=== PATIENT | male | born 1990 | race Caucasian/White ===

== ENCOUNTER → 2017-06-11 | Outpatient (CLI) | payer OTHER | END | disposition home or self-care (01) | LOC: KCIC MRI 14:32 | DX: M25.562 Pain in left knee (principal); M66.0 Rupture of popliteal cyst | CPT/HCPCS: 73721 ==

== ENCOUNTER 2017-06-18 06:11 | Day surgery (SDC) | payer OTHER ==
[2017-06-18] MEDS: IV RINGERS,LACTATED 1000ML 1,000 ML IV ×2 (06:47)
[2017-06-18] MEDS ORDERED: MORPHINE SULFATE 2 MG/ML DISP.SYRIN. IV ×2 (07:00)
[2017-06-18] MEDS ORDERED: ONDANSETRON PF 4 MG/2 ML VIAL. IV ×2 (07:00)
[2017-06-18] MEDS ORDERED: fentaNYL PF VIAL 100 MCG/2 ML VIAL IV ×2 (07:00)
[2017-06-18] MEDS ORDERED: ceFAZolin 2GM PREMIX 2 GM/50 ML BAG IV ×2 (07:00)
[2017-06-18] MEDS ORDERED: PROCHLORPERAZINE 10 MG/2 ML VIAL. IV ×2 (07:00)
[2017-06-18] MEDS ORDERED: LIDOCAINE 1% PF 2 ML VIAL. ID ×2 (07:00)
[2017-06-18] MEDS ORDERED: ONDANSETRON PF 4 MG/2 ML VIAL. ×2 (07:10)
[2017-06-18] MEDS ORDERED: PROPOFOL 20 ML IV ×2 (07:10)
[2017-06-18] MEDS ORDERED: LIDOCAINE 2% PF Vial for OR 5 ML VIAL. ×2 (07:10)
[2017-06-18] MEDS ORDERED: DEXAMETHASONE SOD PHOS 20 MG/5 ML VIAL. ×2 (07:10)
[2017-06-18] MEDS ORDERED: MIDAZOLAM HCL/PF 2 MG/2 ML VIAL. ×2 (07:11)
[2017-06-18] MEDS ORDERED: fentaNYL PF VIAL 100 MCG/2 ML VIAL ×4 (07:11→07:58)
[2017-06-18] MEDS: LIDOCAINE 1% 20 ML VIAL. ×2 (07:45)
[2017-06-18] MEDS: BUPIVACAINE MPF 0.5% 30 ML VIAL. ×2 (07:45)
[2017-06-18] MEDS: EPINEPHrine VIAL 30 MG/30 ML VIAL ×2 (07:45)
[2017-06-18] MEDS ORDERED: KETOROLAC 30 MG/ML INJ FOR OR. INJ ×2 (07:54)
[2017-06-18] MEDS ORDERED: SEVOFLURANE 31 TO 60 MINUTES. IH ×2 (08:01)
[2017-06-18] MEDS: fentaNYL PF VIAL 100 MCG/2 ML VIAL IV ×4 (08:31→08:39)
[2017-06-18] MEDS: HYDROcodone/APAP 5/325MG 1 TAB TABLET PO ×2 (08:58)
== END 2017-06-18 09:38 | disposition home or self-care (01) ==
LOC: SURG 06:11
DX: M25.562 Pain in left knee (principal); Z87.39 Personal history of other diseases of the musculoskeletal system and connective tissue
CPT/HCPCS: 29870; A4215; J0171; J0690; J1100; J1885; J2250; J2405; J2704; J3010; J3490; J7120